=== PATIENT | male | born 1995 | race Caucasian/White ===

== ENCOUNTER 2020-09-17 10:40 | Outpatient (CLI) | payer OTHER ==
[2020-09-17 16:12] LABS: PROLACTIN 5.83 ng/mL
== END 2020-09-17 10:41 | disposition home or self-care (01) ==
LOC: LAB.S 10:40
PROVIDERS: ATTEND Physician Assistant
DX: R68.82 Decreased libido (principal); R63.5 Abnormal weight gain; F32.9 Major depressive disorder, single episode, unspecified; R53.83 Other fatigue; L85.3 Xerosis cutis; R68.89 Other general symptoms and signs
CPT/HCPCS: 36415; 81599; 84146; 84402; 84403; 84443